=== PATIENT | female | born 1995 | race Two or more races ===

== ENCOUNTER 2024-12-24 12:02 | Outpatient (RCR) | payer MEDICAID, SELFPAY ==
--- NOTE | 2024-11-12 12:04 | XR_ITS ---
Examination: Biophysical profile, ultrasound Date and time of exam: November 12, 2024 1201 hours INDICATIONS: Diagnosis cholestasis of Technique: Multiple transabdominal sonographic images of the pelvis abdomen obtained. Attention is directed to the breathing movement, gross body movement, amniotic fluid volume and tone. Findings: Amniotic fluid index 15.7 cm Total biophysical profile is 8 of 8. breathing movement is 2. Gross body movement is 2. tone is 2. Qualitative amniotic fluid volume is 2 Impression: Biophysical profile is 8 of 8.
[2024-11-12 13:18] VITALS: BP 133/75; PULSE 86; RESP 16
--- NOTE | 2024-11-15 11:57 | XR_ITS ---
Examination: Biophysical profile, ultrasound Date and time of exam: November 15, 2024 1236 hours INDICATIONS: Diagnosis cholestasis of Technique: Multiple transabdominal sonographic images of the pelvis abdomen obtained. Attention is directed to the breathing movement, gross body movement, amniotic fluid volume and tone. Findings: Amniotic fluid index 11.2 cc Total biophysical profile is 8 of 8. breathing movement is 2. Gross body movement is 2. tone is 2. Qualitative amniotic fluid volume is 2 Impression: Biophysical profile is 8 of 8.
[2024-11-15 13:26] VITALS: BP 115/62; PULSE 88; RESP 16
--- NOTE | 2024-11-19 12:05 | XR_ITS ---
Examination: Biophysical profile, ultrasound Date and time of exam: November 19, 2024 1216 hours INDICATIONS: Diagnosis cholestasis of , diagnosis pelvic pain 2 days Technique: Multiple transabdominal sonographic images of the pelvis abdomen obtained. Attention is directed to the breathing movement, gross body movement, amniotic fluid volume and tone. Findings: Amniotic fluid index 11.1 cm Total biophysical profile is 8 of 8. breathing movement is 2. Gross body movement is 2. tone is 2. Qualitative amniotic fluid volume is 2 Impression: Biophysical profile is 8 of 8.
[2024-11-19 13:52] VITALS: BP 116/73; PULSE 88; RESP 16; TEMP 36.8
--- NOTE | 2024-11-22 12:08 | XR_ITS ---
Examination: Biophysical profile, ultrasound Date and time of exam: November 22, 2024 1227 hours INDICATIONS: Diagnosis cholestasis of , diagnosis multiple miscarriages, diagnosis pelvic pain 4 days, diagnosis high risk Technique: Multiple transabdominal sonographic images of the pelvis abdomen obtained. Attention is directed to the breathing movement, gross body movement, amniotic fluid volume and tone. Findings: Amniotic fluid index 14.6 cm Total biophysical profile is 8 of 8. breathing movement is 2. Gross body movement is 2. tone is 2. Qualitative amniotic fluid volume is 2 Impression: Biophysical profile is 8 of 8.
[2024-11-22 13:54] VITALS: BP 111/69; PULSE 88; RESP 18; TEMP 36.9
--- NOTE | 2024-11-26 12:13 | XR_ITS ---
Examination: Biophysical profile, ultrasound Date and time of exam: November 26, 2024 1224 hours INDICATIONS: Diagnosis cholestasis of , diagnosis pelvic pain 8 days Technique: Multiple transabdominal sonographic images of the pelvis abdomen obtained. Attention is directed to the breathing movement, gross body movement, amniotic fluid volume and tone. Findings: Amniotic fluid index 13.1 cm Total biophysical profile is 8 of 8. breathing movement is 2. Gross body movement is 2. tone is 2. Qualitative amniotic fluid volume is 2 Impression: Biophysical profile is 8 of 8.
[2024-11-26 14:24] VITALS: BP 125/71; PULSE 90; RESP 18
--- NOTE | 2024-11-29 12:02 | XR_ITS ---
Examination: Biophysical profile, ultrasound Date and time of exam: November 29, 2024 1211 hours INDICATIONS: Diagnosis cholestasis of Technique: Multiple transabdominal sonographic images of the pelvis abdomen obtained. Attention is directed to the breathing movement, gross body movement, amniotic fluid volume and tone. Findings: Amniotic fluid index 19.3 cm Total biophysical profile is 8 of 8. breathing movement is 2. Gross body movement is 2. tone is 2. Qualitative amniotic fluid volume is 2 Impression: Biophysical profile is 8 of 8.
[2024-11-29 13:00] VITALS: BP 119/59; PULSE 89; RESP 18
--- NOTE | 2024-12-03 12:17 | XR_ITS ---
Examination: Biophysical profile, ultrasound Date and time of exam: December 03, 2024 1220 hours INDICATIONS: Diagnosis cholestasis of , diagnosis pelvic pain one week Technique: Multiple transabdominal sonographic images of the pelvis abdomen obtained. Attention is directed to the breathing movement, gross body movement, amniotic fluid volume and tone. Findings: Amniotic fluid index 17.3 cm Total biophysical profile is 8 of 8. breathing movement is 2. Gross body movement is 2. tone is 2. Qualitative amniotic fluid volume is 2 Impression: Biophysical profile is 8 of 8.
[2024-12-03 13:27] VITALS: BP 124/64; PULSE 88; RESP 18; TEMP 36.9
--- NOTE | 2024-12-06 12:02 | XR_ITS ---
Examination: Biophysical profile, ultrasound Date and time of exam: December 06, 2024 1248 hours INDICATIONS: Diagnosis cholestasis of Technique: Multiple transabdominal sonographic images of the pelvis abdomen obtained. Attention is directed to the breathing movement, gross body movement, amniotic fluid volume and tone. Findings: Amniotic fluid index 9.5 cm Total biophysical profile is 8 of 8. breathing movement is 2. Gross body movement is 2. tone is 2. Qualitative amniotic fluid volume is 2 Impression: Biophysical profile is 8 of 8.
[2024-12-06 14:53] VITALS: BP 110/64; PULSE 85; RESP 18; TEMP 37.1
--- NOTE | 2024-12-13 11:59 | XR_ITS ---
Examination: Biophysical profile, ultrasound Date and time of exam: December 13, 2024 1204 hours INDICATIONS: Diagnosis multiple miscarriages, diagnosis cholestasis of Technique: Multiple transabdominal sonographic images of the pelvis abdomen obtained. Attention is directed to the breathing movement, gross body movement, amniotic fluid volume and tone. Findings: Amniotic fluid index 11.6 cm Total biophysical profile is 8 of 8. breathing movement is 2. Gross body movement is 2. tone is 2. Qualitative amniotic fluid volume is 2 Impression: Biophysical profile is 8 of 8.
[2024-12-13 12:37] VITALS: BP 113/67; PULSE 96; RESP 16; TEMP 36.5
--- NOTE | 2024-12-17 12:08 | XR_ITS ---
Examination: Biophysical profile, ultrasound Date and time of exam: December 17, 2024 1212 hrs. Indications: Diagnosis cholestasis of , diagnosis high risk , history multiple miscarriages, pelvic pain 10 days Technique: Multiple transabdominal sonographic images of the pelvis abdomen obtained. Attention is directed to the breathing movement, gross body movement, amniotic fluid volume and tone. Findings: Amniotic fluid index 9.5 cm Total biophysical profile is 8 of 8. breathing movement is 2. Gross body movement is 2. tone is 2. Qualitative amniotic fluid volume is 2 Impression: Biophysical profile is 8 of 8.
[2024-12-17 12:33] VITALS: BP 117/72; PULSE 96; RESP 18; TEMP 36.6
--- NOTE | 2024-12-20 07:20 | XR_ITS ---
Examination: Complete OB ultrasound greater than 14 weeks Date and time of exam: December 20, 2024 1244 hrs. Indications: Labor induction scheduled next week, diagnosis cholestasis of , diagnosis high risk , history multiple miscarriages, history pelvic pain 10 days Findings: Viable intrauterine single fetus with single amniotic sac presentation cephalic Cardiac motion 141 BPM Placenta posterior grade 3 Umbilical cord insertion 3 vessel seen Amniotic fluid index 11.9 cm spine maternal left Cervix 3.2 cm Ovaries obscured by bowel gas. Composite estimated gestational age based on BPD, head circumference, abdominal circumference, femur length is 37 weeks 1 day Estimated weight 3054 g. Survey of intracranial anatomy, spinal anatomy, abdominal anatomy, four-chamber heart performed with no abnormalities identified. Impression: Viable intrauterine gestation cephalic presentation Estimated gestational age 37 weeks 1 day Estimated weight 3054 g.
--- NOTE | 2024-12-20 12:25 | XR_ITS ---
Examination: Biophysical profile, ultrasound Date and time of exam: December 20, 2024 1255 hrs. Indications: Diagnosis cholestasis of , diagnosis intrauterine growth retardation Technique: Multiple transabdominal sonographic images of the pelvis abdomen obtained. Attention is directed to the breathing movement, gross body movement, amniotic fluid volume and tone. Findings: Amniotic fluid index 12.3 cm Total biophysical profile is 8 of 8. breathing movement is 2. Gross body movement is 2. tone is 2. Qualitative amniotic fluid volume is 2 Impression: Biophysical profile is 8 of 8.
[2024-12-20 13:08] VITALS: BP 109/65; PULSE 96; RESP 18; TEMP 36.9
--- NOTE | 2024-12-24 12:19 | XR_ITS ---
Examination: Biophysical profile, ultrasound Date and time of exam: December 24, 2024 1247 hours INDICATIONS: Diagnosis cholestasis of , diagnosis intrauterine growth retardation Technique: Multiple transabdominal sonographic images of the pelvis abdomen obtained. Attention is directed to the breathing movement, gross body movement, amniotic fluid volume and tone. Findings: Amniotic fluid index 20.8 cm Total biophysical profile is 8 of 8. breathing movement is 2. Gross body movement is 2. tone is 2. Qualitative amniotic fluid volume is 2 Impression: Biophysical profile is 8 of 8.
[2024-12-24 13:04] VITALS: BP 103/55; PULSE 97; RESP 17; TEMP 36.6
== END 2024-12-24 23:59 | disposition home or self-care (01) ==
LOC: S4S1 12:02
PROVIDERS: Referring Provider Advanced Practice Midwife; Visit Provider Advanced Practice Midwife
DX: O26.643 Intrahepatic cholestasis of pregnancy, third trimester (principal); K83.1 Obstruction of bile duct; Z3A.38 38 weeks gestation of pregnancy; O09.93 Supervision of high risk pregnancy, unspecified, third trimester
CPT/HCPCS: 59025; 76805; 76819

== ENCOUNTER 2024-12-25 10:35 | Inpatient (IN) | payer MEDICAID, SELFPAY ==
[2024-12-25] VITALS (12 sets, daily range): BP systolic 103–124; BP diastolic 55–72; PULSE 73–104; RESP 16–17; TEMP 36.8–37.1; BMI 50.6
[2024-12-25 11:24] LABS: Basophils # (Auto) 0.1 Thou/mm3 (0.0-0.2); Basophils % (Auto) 1 % (0-2.5); Eosinophils # (Auto) 0.1 Thou/mm3 (0.0-0.5); Eosinophils % (Auto) 1 % (0-10); Hematocrit 36.1 % (36.0-46.0); Immature Granulocytes % (Auto) 0 % (0-0); Immature Granulocytes Auto 0.03 Thou/mm3 (0.00-0.00); Lymphocytes # (Auto) 1.7 Thou/mm3 (1.0-4.8); Lymphocytes % (Auto) 19 % (10-50); Mean Corpuscular HGB Conc 33.2 g/dl (31.0-37.0); Mean Corpuscular Hemoglobin 26.7 pg (25.0-35.0); Mean Corpuscular Volume 80 fL (80-100); Monocytes # (Auto) 0.4 Thou/mm3 (0.0-0.8); Monocytes % (Auto) 4 % (0-12); Neutrophils # (Auto) 6.9 Thou/mm3 (1.8-7.7); Neutrophils % (Auto) 75 % (37-80); Nucleated Red Blood Cell % 0 /100 WBC (0); Platelet Count 295 Thou/mm3 (140-440); RDW Standard Deviation 40.8 fL (36.4-46.3); Red Blood Count 4.49 Miln/mm3 (4.00-5.20); White Blood Count 9.2 Thou/mm3 (3.6-11.0)
--- NOTE | 2024-12-25 11:44 | XR_ITS ---
Examination: Complete OB ultrasound greater than 14 weeks Date and time of exam: December 26, 1999 2512 noon INDICATIONS: Labor induction today, diagnosis cholestasis of , diagnosis intrauterine growth retardation Findings: Viable intrauterine single fetus with single amniotic sac presentation cephalic Cardiac motion 141 BPM Placenta fundal grade 3 Umbilical cord insertion seen Amniotic fluid index 13.5 cm Cervix 3.0 cm Ovaries obscured by bowel gas. Composite estimated gestational age based on BPD, head circumference, abdominal circumference, femur length is 38 weeks 1 day Estimated weight 3527 g. Survey of intracranial anatomy, spinal anatomy, abdominal anatomy, four-chamber heart performed with no abnormalities identified. Impression: Viable intrauterine gestation cephalic presentation.
[2024-12-25 12:12] LABS: Syphilis Nonreactive (Nonreactive)
[2024-12-25 12:22] LABS: Amphetamine/Metham Scrn,Ur OB Negative (Negative); Benzoylecgonine Screen, Ur OB Negative (Negative); Opiate Screen,Urine OB Negative (Negative); THC Screen,Urine OB Negative (Negative)
[2024-12-25] MEDS: DINOPROSTONE 10 MG VAG.SUPP VAGINAL (13:20)
--- NOTE | 2024-12-25 15:07 | PD.LDHP ---
Documentation for date of: 12/25/24 OB Labor/Induct. HPI History of Present Illness Chief complaint: induction : 4 Para: 0 Term pregnancies: 0 pregnancies: 0 Living children: 0 History of Abortions: Spontaneous and Elective: 3 History of Vaginal deliveries: 0 History of sections: No History of : No Date of last menstrual period: 03/27/24 SON: 01/01/25 Gestational Age (weeks): 39 Gestational Age (days): 1 Gestational age based on last menstrual period: 39 Indication for induction: other (gestational diabetes, good control) History of present illness: 29 yo for induction of labor. lmp 03/27/24. EDC 01/01/25. IUP 39w1. schedule for induction due to GDM, diet only, with good control. morbid obesity. patient has been followed at [facility]. first visit was at 7 week. patient has had several ultrasound, first sono was at 5 week. [facility] sono all showed good growth and good dates. NIPT,AFP and carrier screens normal. patient is A negative, ABS-, Rhogam given at 28 week. rubella immune, HBSAG-, HIV-, hep C-, GC/CT-, RPR:NR, GBS-, A1c: 5.7, 1 hr gtt elevated and 3 hr gtt elevated, compliant with gdm diet and weekly NST/BPP, denies concurrent PMH, no social habit and no surgery History of Present Dating criteria: LMP confirmed by 1st trimester US Adequate Care: Yes Ultrasounds: normal 1st trimester US and normal mid trimester US Obstetrical complications: gestational diabetes Medical complications: none Labs Labs: Negative: Hepatitis B, HIV, Chlamydia, Gonorrhea and Group Beta Strep Review of Systems Review of Systems Systems Reviewed: All systems reviewed, normal except as documented Past Medical History Surgical History SURGICAL: Positive Section Meds Home Medications and Allergies Home Medications ?Medication ?Instructions ?Recorded ?Confirmed ?Type aspirin 81 mg chewable tablet 12/17/24 History Allergies Allergy/AdvReac Type Severity Reaction Status Date / Time No Known Allergies Allergy Verified 12/26/24 08:22 OB Exam Physical Exam Vital signs: Temp Pulse Resp BP 98.3 F 83 17 110/63 12/25/24 11:11 12/25/24 15:05 12/25/24 11:11 12/25/24 15:05 Narrative: normal heart rate, lungs clear, gravid abdomen, gynecoid pelvis. efw 3500, vertex on sono, heart rate, category 1. occ uc noted. sve: 80/2/-2. vertex Detailed Labor and Delivery Exam Dilation (cm): 2 Effacement (%): 80 Cervix position: posterior station: -3 Consistency: medium Presentation: Vertex Cervical ripeness score: 3 Membranes: intact monitor accelerations: 15x15 monitor decelerations: None residential variability: Moderate (11-25) Contraction frequency (min): occ Tachysystole: No Contraction intensity: Mild OB Results Labs 12/25/24 11:10 Labs: Short CBC 12/25/24 Range/Units 11:10 WBC 9.2 (3.6-11.0) Thou/mm3 Hgb 12.0 (12.0-16.0) g/dL Hct 36.1 (36.0-46.0) % Plt Count 295 (140-440) Thou/mm3 OB Assessment & Plan Assessment and Plan (1) Normal labor and delivery: Status: Acute Additional Plan Induction method: per misoprostol protocol Plan: induction, anticipate NVD and consult MD wilks
[2024-12-25] MEDS: MISOPROSTOL 50 mCg TABLET PO (20:01)
[2024-12-26] VITALS (99 sets, daily range): BP systolic 90–161; BP diastolic 53–84; PULSE 59–109; RESP 17–18; TEMP 36.6–36.8; O2SAT 88–100
[2024-12-26] MEDS: fentaNYL CIT INJ 50 mCg/ML AMP 2ML 100 MCG IV (00:07)
[2024-12-26] MEDS: MISOPROSTOL 50 mCg TABLET PO (00:07)
[2024-12-26] MEDS: MINERAL OIL 30 ML UDC TOP (06:52)
[2024-12-26] MEDS: MISOPROSTOL 200 mCg TABLET 800 MCG PR (06:53)
[2024-12-26] MEDS: OXYTOCIN INJ 10 UNIT/ML VIAL IM (06:53)
[2024-12-26] MEDS: BENZO/LANO/ALOE (Dermoplast) 60 GM CAN 1 SPRAY TOP (06:53)
[2024-12-26] MEDS: OXYTOCIN in NS 20 units 20 UNIT/1,000 ML BAG 125 UNIT IV (06:54)
[2024-12-26] MEDS: IBUPROFEN TAB 400 MG TABLET 800 MG PO ×2 (07:01→16:40)
--- NOTE | 2024-12-26 07:16 | PD.LDDELS ---
Data (Mi) Data Hx Section: No : 4 Para: 0 Term: 0 : 0 : 0 Delivery Data (Mi) Labor Data Stimulated/Augmented: No Induction: Yes Method: Cervidil (followed by cytotec) ROM Date: 12/26/24 ROM Time: 00:40 Rupture Type: SROM Amniotic Fluid: Clear Delivery Data EDC: 01/01/25 EDC calculated by:: LMP/early US confirmation Labor Onset Stage 1 Date: 12/26/24 Labor Onset Stage 1 Time: 03:47 Labor Onset Stage 2 Date: 12/26/24 Labor Onset Stage 2 Time: 05:14 Delivery Date: 12/26/24 Delivery Time: 06:47 Gestational age (weeks): 39 Gestational age (days): 1 Placenta Delivery Date: 12/26/24 Placenta Delivery Time: 06:51 Delivered by: Valerie Jauregui Delivery nurse: Jenise Anne Other staff at delivery: Nursery Nurse Other staff at delivery: 2nd Nurse Other staff at delivery: Other staff at delivery: Irina Lo Other staff at delivery: Stephanie Real Other staff at delivery: Nancy Novoa Delivery Method Delivery: Vaginal Delivery Type: Spontaneous Presentation: Vertex Position: OA Anesthesia Type Primary Anesthesia: Epidural Delivery Room Medications Intrapartum Medications: Tocolytics Other Intrapartum Medications: No Post Delivery Medications: Tocolytics and Cytotec Placenta Placenta Delivery: Spontaneous (placenta inspected, complete) Placenta Cultures Obtained: No Placenta Sent for Examination: No Cord Sample: Cord Blood Obtained Episiotomy Episiotomy: None Lacerations #1: Vaginal: 1st degree (and left labial) Perineal repair Sutures used for repair: 3.0 Vicryl EBL Estimated blood loss (ml): 400 Umbilical Cord Umbilical Vessels: 3 Nuchal Cord: None Body Cord: None Data (Mi) Data Infant Gender: Female Weight Grams: 3225 1 Minute Total: 9 5 Minute Total: 9
[2024-12-26] MEDS: TRANEXAMIC ACID 1,000 MG IVPB 1,000 MG/100 ML BAG 200 MG IV (07:22)
--- NOTE | 2024-12-26 07:53 | PC.NURSE ---
12/26/24 0751: Notified MD Bustos of pts. fundal assessment done at 0740. Pt. passed blood clot measured at 158g.
--- NOTE | 2024-12-26 09:30 | CHAP ---
Gave new mother and father encouragement and gave a blessing on infant and family.
[2024-12-26 16:01] LABS: Basophils # (Auto) 0.1 Thou/mm3 (0.0-0.2); Basophils % (Auto) 0 % (0-2.5); Eosinophils # (Auto) 0.1 Thou/mm3 (0.0-0.5); Eosinophils % (Auto) 1 % (0-10); Hematocrit 30.3 % (36.0-46.0); Hemoglobin 10.1 g/dL (12.0-16.0); Immature Granulocytes % (Auto) 1 % (0-0); Immature Granulocytes Auto 0.08 Thou/mm3 (0.00-0.00); Lymphocytes # (Auto) 1.6 Thou/mm3 (1.0-4.8); Lymphocytes % (Auto) 12 % (10-50); Mean Corpuscular HGB Conc 33.3 g/dl (31.0-37.0); Mean Corpuscular Hemoglobin 27.1 pg (25.0-35.0); Mean Corpuscular Volume 81 fL (80-100); Monocytes # (Auto) 0.8 Thou/mm3 (0.0-0.8); Monocytes % (Auto) 6 % (0-12); Neutrophils # (Auto) 10.7 Thou/mm3 (1.8-7.7); Neutrophils % (Auto) 80 % (37-80); Nucleated Red Blood Cell % 0 /100 WBC (0); Platelet Count 255 Thou/mm3 (140-440); RDW Standard Deviation 41.7 fL (36.4-46.3); Red Blood Count 3.73 Miln/mm3 (4.00-5.20); White Blood Count 13.4 Thou/mm3 (3.6-11.0)
[2024-12-26] MEDS: DOCUSATE SOD 100 MG CAPSULE PO (20:47)
[2024-12-27] MEDS: IBUPROFEN TAB 400 MG TABLET 800 MG PO ×2 (02:04→11:24)
[2024-12-27] MEDS: ACETAMINOPHEN 325 MG TABLET 650 MG PO (04:09)
[2024-12-27 04:14] VITALS: BP 92/61; PULSE 84; RESP 18; TEMP 36.5; O2SAT 99
[2024-12-27 07:26] VITALS: BP 98/65; PULSE 80; RESP 17; TEMP 36.6; O2SAT 98
--- NOTE | 2024-12-27 07:30 | PD.LDPPPRG ---
Subjective Subjective Interval history: No complaints of pain. No dizziness. Bonding and breast-feeding. No complaints of pain. No dizziness. Exam Vital Signs Temp Pulse Resp BP Pulse Ox O2 Del Method 97.7 F 84 18 92/61 99 Room Air 12/27/24 04:14 12/27/24 04:14 12/27/24 04:14 12/27/24 04:14 12/27/24 04:14 12/27/24 04:14 Narrative Exam Vital signs are stable afebrile. Breasts are soft. Fundus firm below the umbilicus. Negative Homans' sign. 2+ DTRs. No swelling. Perineum intact minimal swelling. Small lochia Objective Labs 12/26/24 15:39 Labs: Laboratory Results - last 24 hr 12/25/24 12/25/24 12/26/24 11:10 11:10 14:18 WBC RBC Hgb Hct MCV MCH MCHC RDW Std Deviation Plt Count Neut % (Auto) Lymph % (Auto) [place] % (Auto) Eos % (Auto) Baso % (Auto) Neut # (Auto) Lymph # (Auto) [place] # (Auto) Eos # (Auto) Baso # (Auto) Immature Gran # (Auto) Absolute Nucleated RBC Immature Gran % Nucleated RBC % Blood Type A Negative Rho(D) IG Studies Ready Antibody Screen NEGATIVE Antibody Identification Cancelled Cancelled Maternal Bleed Negative Blood Bank Wristband ID Yes 12/26/24 15:39 WBC 13.4 H D RBC 3.73 L Hgb 10.1 L Hct 30.3 L MCV 81 MCH 27.1 MCHC 33.3 RDW Std Deviation 41.7 Plt Count 255 D Neut % (Auto) 80 Lymph % (Auto) 12 [place] % (Auto) 6 Eos % (Auto) 1 Baso % (Auto) 0 Neut # (Auto) 10.7 H Lymph # (Auto) 1.6 [place] # (Auto) 0.8 Eos # (Auto) 0.1 Baso # (Auto) 0.1 Immature Gran # (Auto) 0.08 H Absolute Nucleated RBC 0.00 Immature Gran % 1 H Nucleated RBC % 0 Blood Type Rho(D) IG Studies Antibody Screen Antibody Identification Maternal Bleed Blood Bank Wristband ID Assessment & Plan Problem List (1) Normal labor and delivery: Status: Acute Assessment Comment Assessment comment: 24-hour Plan Comment Plan Comment: Discharge home with baby. Continue vitamins and iron. Tylenol ibuprofen for pain. Danger signs. Return in 3 weeks visit. Discussed signs symptoms of infection and ER precautions. Time Spent With Patient Time: Total time spent is greater than 50% in coordination of care (as documented) at patient's floor/unit and/or counseling patient:
--- NOTE | 2024-12-27 07:35 | ESDS_ITS ---
DS: Providers Provider Date of admission: 12/25/24 10:35 Primary care physician: Physician No Primary/Family Admitting Provider: Rain Mann MD Attending Provider on Admission: Valerie Jauregui CNM Consults: 12/26/24 08:05 Referral Routine Comment: Attending Provider on DC: Valerie Jauregui CNM Discharging Provider: Valerie Jauregui CNM DS: Diagnosis Problem List Completed Was Problem List Reviewed/Reconciled?: Yes Summary/Hosp Course Brief History: 29 yo for induction of labor. lmp 03/27/24. EDC 01/01/25. IUP 39w1. schedule for induction due to GDM, diet only, with good control. morbid obesity. patient has been followed at [facility]. first visit was at 7 week. patient has had several ultrasound, first sono was at 5 week. [facility] sono all showed good growth and good dates. NIPT,AFP and carrier screens normal. patient is A negative, ABS-, Rhogam given at 28 week. rubella immune, HBSAG-, HIV-, hep C-, GC/CT-, RPR:NR, GBS-, A1c: 5.7, 1 hr gtt elevated and 3 hr gtt elevated, compliant with gdm diet and weekly NST/BPP, denies concurrent PMH, no social habit and no surgery Peripartum Data Delivery Method: Normal Vaginal Delivery Episiotomy Description: None Laceration Description: yes (vagial and labial) Time Spent with Patient Time attestation: Total time spent providing and/or coordinating discharge services: Exam Vital Signs Temp Pulse Resp BP Pulse Ox O2 Del Method 97.7 F 84 18 92/61 99 Room Air 12/27/24 04:14 12/27/24 04:14 12/27/24 04:14 12/27/24 04:14 12/27/24 04:14 12/27/24 04:14 Discharge Plan Plan Patient Disposition: HOME (Self Care) Patient condition on transfer: Stable Prescriptions/Referrals Prescriptions/Med Rec: New ferrous sulfate 325 mg (65 mg iron) tablet,delayed release (DR/EC) 325 mg PO BID Qty: 30 0RF ibuprofen 800 mg tablet 800 mg PO Q8H PRN (Reason: pain) Qty: 30 0RF No Action aspirin 81 mg tablet,chewable Patient Comments: chew and swallow 1 tablet by mouth once daily Referrals: No Primary/Family,Physician [Primary Care Provider] - Patient/Caregiver Discharge Instructions Meds to Beds: No Discharge Activity: resume usual activities Print Language: Yakut Activity Restrictions/Additional Instructions: Discharge home with baby. Continue vitamins and iron. Tylenol or ibuprofen for pain. Danger signs. Return in 3 weeks visit. Discussed ER precautions and parameters. Discussed signs symptoms of infection and danger signs. Stand Alone Forms: [employer] Award Info., Patient Portal Info Letter Discharge Order Discharge Orders: Discharge (Routine); Ordered 12/27/24 Ordered By: Valerie Jauregui Planned Discharge Date 12/27/24
[2024-12-27] MEDS: DOCUSATE SOD 100 MG CAPSULE PO (08:29)
--- NOTE | 2024-12-27 08:30 | PC.NURSE ---
Cleared by [facility] in criminal justice social worker
--- NOTE | 2024-12-27 09:29 | PC.SS ---
[employer] conducted bedside contact with the patient to address nursing referral indicating patient was positive for THC during .? Toxicology screening at admission negative.? [employer] introduced self and role.? Present with patient was Eduardo MIRZA.? Patient gave consent for FOB to be present during discussion.? [employer] discussed basis of referral.? Patient confirmed recreational use of THC.? Patient stated that during time of use, unaware of .? Upon confirmation of , patient ceased use.? Patient states not planning to continue recreational use of THC.? , Amparo; is the patient?s first child.? was delivered naturally, full term.? Patient plans of .? OB services provided by Valerie Jauregui.? Patient confirms consistency with OB appointments.? Patient is aligned with SNAP and WIC.? Patient is not receiving TANF.? Patient denies history of alcohol/drug abuse.? Patient denies CWS intervention.? Patient denies episodes of domestic violence.? Patient denies possessing a history of mental health, reports no current possession of depression or anxiety.? Patient has access to appropriate supplies and equipment; to include a car seat.? FOB will provide transportation upon discharge.? Patient describes possessing support system consisting of FOB and extended family.? [employer] provided the patient with information to include [employer], Warm Line and community resource numbers.? No further intervention required at this time, social human services assistants will be available to address any further concerns.? [employer] updated bedside nurse.?
== END 2024-12-27 13:35 | disposition home or self-care (01) | DRG 560 ==
LOC: S4SX 12-26 08:18 → S4NX 12-26 11:25
PROVIDERS: Admitting Provider Student in an Organized Health Care Education/Training Program; Visit Provider Advanced Practice Midwife
DX: O24.420 Gestational diabetes mellitus in childbirth, diet controlled (principal); Z37.0 Single live birth; Z3A.39 39 weeks gestation of pregnancy; O70.0 First degree perineal laceration during delivery; O99.214 Obesity complicating childbirth; E66.01 Morbid (severe) obesity due to excess calories; O26.643 Intrahepatic cholestasis of pregnancy, third trimester; K83.1 Obstruction of bile duct; O36.5930 Maternal care for other known or suspected poor fetal growth, third trimester, not applicable or unspecified
CPT/HCPCS: 36415; 76805; 80307; 85025; 85461; 86780; 86850; 86870; 86900; 86901; J2590; J2790; J2795; J3010; J3490; S0191; A9270

== ENCOUNTER 2025-01-01 20:29 | Emergency (ER) | payer MEDICAID, SELFPAY ==
[2025-01-01 20:29] VITALS: BMI 47.5
[2025-01-01 21:04] VITALS: BP 118/81; PULSE 81; RESP 18; TEMP 36.6; O2SAT 98
--- NOTE | 2025-01-01 21:33 | XR_ITS ---
Examination: Abdomen sonogram, Limited Date and time of exam: January 01, 2025 10:00 PM Indications: Right upper abdominal pain 6 days Technique: Real-time su scale transabdominal sonographic images of the upper abdomen obtained. Findings: Gallbladder sludge No gallstones Gallbladder wall 0.3 cm Common bile duct 3.3 cm Pancreatic head 2.7 cm Liver 16.8 no focal liver lesions Normal hepatopedal portal venous flow Patent IVC Impression: Negative for cholelithiasis, negative for cholecystitis Fatty liver
--- NOTE | 2025-01-01 21:34 | EDRME_ITS ---
Rapid Medical Screening Exam [facility] Arrival date/time: 01/01/25 20:29 29F with no significant PMH presents to ED with several days of RUQ pain and N/V. Patient had a vaginal delivery last week. Vaginal bleeding has improved. Chief Complaint: Abdominal Pain Vital signs: Vital Signs Temperature 98 F 01/01/25 21:04 Pulse Rate 81 01/01/25 21:04 Respiratory Rate 18 01/01/25 21:04 Blood Pressure 118/81 01/01/25 21:04 Pulse Oximetry (%) 98 01/01/25 21:04 Oxygen Delivery Method Room Air 01/01/25 21:04
[2025-01-01 22:03] LABS: Basophils # (Auto) 0.1 Thou/mm3 (0.0-0.2); Basophils % (Auto) 1 % (0-2.5); Eosinophils # (Auto) 0.4 Thou/mm3 (0.0-0.5); Eosinophils % (Auto) 5 % (0-10); Hematocrit 33.7 % (36.0-46.0); Immature Granulocytes % (Auto) 1 % (0-0); Immature Granulocytes Auto 0.09 Thou/mm3 (0.00-0.00); Lymphocytes # (Auto) 2.4 Thou/mm3 (1.0-4.8); Lymphocytes % (Auto) 24 % (10-50); Mean Corpuscular HGB Conc 32.6 g/dl (31.0-37.0); Mean Corpuscular Hemoglobin 27.3 pg (25.0-35.0); Mean Corpuscular Volume 84 fL (80-100); Monocytes # (Auto) 0.6 Thou/mm3 (0.0-0.8); Monocytes % (Auto) 6 % (0-12); Neutrophils # (Auto) 6.2 Thou/mm3 (1.8-7.7); Neutrophils % (Auto) 63 % (37-80); Nucleated Red Blood Cell % 0 /100 WBC (0); Platelet Count 386 Thou/mm3 (140-440); Red Blood Count 4.03 Miln/mm3 (4.00-5.20); White Blood Count 9.7 Thou/mm3 (3.6-11.0)
[2025-01-01 22:23] LABS: Alanine Aminotransferase 51 U/L (10-49); Albumin/Globulin Ratio 1.4 (1.2-2.2); Alkaline Phosphatase 103 U/L (46-116); Anion Gap 9 (7-16); Aspartate Amino Transferase 22 U/L (0-34); BUN/Creatinine Ratio 18 Ratio (12-20); Bilirubin,Total 0.2 mg/dL (0.3-1.2); Blood Urea Nitrogen 14 mg/dL (9-23); Calcium 9.4 mg/dL (8.3-10.6); Calcium (Corrected) 9.4 mg/dL (8.5-10.1); Carbon Dioxide 26.3 mMol/L (20.0-31.0); Chloride 107 mMol/L (98-107); Creatinine (Component) 0.8 mg/dL (0.6-1.3); Estimated Creatinine Clearance 127.6 mL/min (>60); Globulin 2.8 gm/dL (2.3-3.5); Glucose 90 mg/dL (74-106); Lipase 54 U/L (12-53); Osmolality,Calculated 283 (275-295); Potassium 4.1 mMol/L (3.4-5.1); Sodium 142 mMol/L (136-145); Total Protein 6.8 gm/dL (5.7-8.2); eGFR > 60 See Note
[2025-01-01 23:10] LABS: Collection Type, Urine Clean Catch
[2025-01-01 23:18] LABS: Bilirubin,Urine Negative (Negative); Blood,Urine 3+ (Negative); Clarity,Urine Turbid (Clear/Hazy); Color,Urine Colorless (Lt Yel-Yel); Glucose, Urine Negative (Negative); Ketones,Urine Negative (Negative); Leukocyte Esterase,Urine Positive (Negative); Nitrite,Urine Negative (Negative); PH,Urine 6.5 (5.0-7.0); Protein,Urine Trace (Neg - Trace); RBC,Urine 107 /hpf (0-3); Specific Gravity,Urine 1.015 (1.001-1.035); Squamous Epithelial Cell,Urine 1 /hpf (0-5); Urobilinogen,Urine Negative mg/dL (0.0-1.0); WBC,Urine 192 /hpf (0-5)
--- NOTE | 2025-01-02 01:04 | EDNOTE_ITS ---
ED Abdominal Pain RME/HPI General Chief Complaint: Abdominal Pain Stated complaint: RIGHT UPPER ABD PAIN Arrival date/time: 01/01/25 20:29 Limitations: no limitations RME / HPI RME / HPI narrative: 01/01/25 20:29 29F with no significant PMH presents to ED with several days of RUQ pain and N/V. Patient had a vaginal delivery last week. Vaginal bleeding has improved. Dr. 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 Patient states she started having sudden, sharp RUQ pain tonight. No radiation or migration. Her pain does not worsen after eating. Patient reports associated dysuria. She denies any N/V, fever, chills, vaginal discharge or any other associated symptoms. Patient is bottle and breast-feeding. Related Data Home Medications ?Medication ?Instructions ?Recorded ?Confirmed aspirin 81 mg chewable tablet 12/17/24 Previous Rx's ?Medication ?Instructions ?Recorded ferrous sulfate 325 mg (65 mg 325 mg PO BID #30 tabs 0 12/27/24 iron) tablet,delayed release ibuprofen 800 mg tablet 800 mg PO Q8H PRN pain #30 t abs 12/27/24 cephalexin 500 mg capsule 500 mg PO TID #21 caps 01/02 Allergies Allergy/AdvReac Type Severity Reaction Status Date / Time No Known Allergies Allergy Verified 01/01/25 20:29 Review of Systems Review of Systems Systems Reviewed: All systems reviewed, normal except as documented ED Exam General Limitations: Present no limitations General appearance: Present alert and in no apparent distress Head Head exam: Present atraumatic Eye Eye exam: Present normal appearance, PERRL and EOMI ENT ENT exam: Present normal exam, normal oropharynx and mucous membranes moist Neck Neck exam: Present normal inspection, full ROM and trachea midline Chest Chest inspection: Present normal inspection and symmetric chest wall rise Respiratory Respiratory exam: Present normal lung sounds bilaterally Cardiovascular Cardiovascular exam: Present regular rate, normal rhythm and normal heart sounds Abdominal Exam Abdominal exam: Present soft and normal bowel sounds Extremities Exam Extremities exam: Present normal inspection and full ROM Back Exam Back exam: Present normal inspection and full ROM Neurological Exam Neurological exam: Present alert, oriented X3 and CN II-XII intact Psychiatric Psychiatric exam: Present normal affect and normal mood Skin Skin exam: Present warm, dry, intact and normal color Course Quality Measures none Orders Category Date Time Status US gall bladder Stat Exams 01/01/25 21:33 Completed CBC Stat Lab 01/01/25 21:36 Completed CMP [Comprehensive Metabolic Panel] Stat Lab 01/01/25 21:36 Completed Lipase Stat Lab 01/01/25 21:36 Completed UA [Urinalysis] Stat Lab 01/01/25 23:05 Completed cephALEXin [Keflex] Med 01/02/25 01:09 Once 500 mg PO X1 ONE Vital Signs Vital signs: Vital Signs Temperature 98 F 01/01/25 21:04 Pulse Rate 81 01/01/25 21:04 Respiratory Rate 18 01/01/25 21:04 Blood Pressure 118/81 01/01/25 21:04 Pulse Oximetry (%) 98 01/01/25 21:04 Oxygen Delivery Method Room Air 01/01/25 21:04 Pulse ox is 98% on room air, which is normal according to my interpretation. Abdominal Pain MDM MDM Narrative MDM Narrative:: At this time I do not feel this patient has endometritis. Her blood pressure is stable and she does not have post eclampsia. She is complaining of dysuria and at this time I will treat her for UTI symptoms. Patient data External records reviewed:: [facility] previous records (Per chart review, patient has no previous ED visits.) Clinical information provided by:: patient Social determinants that could affect healthcare access:: none Patient has the following chronic illnesses:: none How is presenting disease/condition affected by chronic disease/condition?: no chronic disease Evaluation data The following diagnostics were reviewed and interpreted by me:: lab results and radiology exam(s) Lab and/or radiology exams considered but not ordered:: none Interpretation Summary: CBC is normal, CMP is normal, Lipase is 54, UA is positive for a UTI, according to my interpretation. ------ [facility] Report Signed Patient: JOSEP TAPIA [facility]. Record#: [id number] Birthdate: 1995 Age/Sex: 29 / F Location: [facility] Attending Dr: Ordering Physician: Diogo Milligan PA-C Date of Service: 01/01/25 Procedure(s): US gall bladder Accession Number(s): [id number] cc: Stephan Caldera MD; NO PRIMARY/FAMILY,PHYSICIAN; Diogo Milligan PA-C~ Examination: Abdomen sonogram, Limited Date and time of exam: January 01, 2025 10:00 PM Indications: Right upper abdominal pain 6 days Technique: Real-time su scale transabdominal sonographic images of the upper abdomen obtained. Findings: Gallbladder sludge No gallstones Gallbladder wall 0.3 cm Common bile duct 3.3 cm Pancreatic head 2.7 cm Liver 16.8 no focal liver lesions Normal hepatopedal portal venous flow Patent IVC Impression: Negative for cholelithiasis, negative for cholecystitis Fatty liver Dictated By: Stephan Caldera MD Signed By: <Electronically signed by Stephan Caldera MD in OV> 01/01/25 0549 Medications / Prescriptions Medications or Prescriptions considered but not ordered:: none Medication administrations:: Medication Administration History Cephalexin HCl (Cephalexin 250 Mg Capsule) 500 mg PO X1 ONE Stop: 01/02/25 01:10 see above, if any Consultations Consultation(s) initiated? (list below): No Diagnosis Differential diagnosis abdominal pain: pancreatitis and other (cholelithiasis, cholecystitis, dysuria, UTI) Most likely diagnosis given after review of the tests above:: see clinical impression below Admission Indicated Admission indicated?: not indicated Admission Request Was there a request for admission?: No Disposition Plan Disposition Plan: Discharge Discharge Attestation Discharge Attestation: The patient and all family members were given an opportunity to ask questions and understood the discharge instructions. Discharge instructions specifically effects, indications for sooner follow up or return to the emergency department, and the expected course of current diagnosis. Patient condition: Stable Discharge Plan Plan Patient Disposition: HOME (Self Care) Patient condition on transfer: Stable Prescriptions/Referrals Prescriptions/Med Rec: New cephalexin 500 mg capsule 500 mg PO TID Qty: 21 0RF No Action aspirin 81 mg tablet,chewable Patient Comments: chew and swallow 1 tablet by mouth once daily ferrous sulfate 325 mg (65 mg iron) tablet,delayed release (DR/EC) 325 mg PO BID Qty: 30 0RF ibuprofen 800 mg tablet 800 mg PO Q8H PRN (Reason: pain) Qty: 30 0RF Referrals: No Primary/Family,Physician [Primary Care Provider] - In 1 week Problem List Clinical Impression: Dysuria Patient/Caregiver Discharge Instructions Education Materials: Dysuria Additional Instructions: Please take the antibiotics as prescribed. You will need to follow-up with your primary care or your PHYSICAL SCIENCE PROFESSOR in 72 hours to get the urine culture results. Return to the emergency department before your appointment or at any time if you are feeling back pain, fever, you cannot tolerate liquids and or vomiting, or you have any vaginal pain or discharge. Print Language: Frisian Stand Alone Forms: [employer] Info., Patient Portal Info Letter
[2025-01-02] MEDS: cephALEXin 250 MG CAPSULE 500 MG PO (01:24)
[2025-01-02 01:27] VITALS: PULSE 67; RESP 19; TEMP 37.1; O2SAT 99
== END 2025-01-02 01:28 | disposition home or self-care (01) ==
PROVIDERS: Physician Assistant; Emergency Provider Emergency Medicine
DX: O90.89 Other complications of the puerperium, not elsewhere classified (principal); R30.0 Dysuria; R10.11 Right upper quadrant pain
CPT/HCPCS: 36415; 76705; 80053; 81001; 83690; 85025; 99284; A9270

== ENCOUNTER 2025-08-14 10:40 | Outpatient (AMB) | payer MEDICAID, SELFPAY ==
[2025-08-14 10:57] VITALS: BP 106/74; PULSE 87; RESP 16; TEMP 36.6; O2SAT 96; BMI 46.4
--- NOTE | 2025-08-14 10:57 | OBCLNT_ITS ---
Vital Signs 08/14/25 10:57 Height 1.57 m Height Method Stated Weight 114.532 kg Weight Measurement Method Standing Scale BMI 46.4 BP 106/74 Blood Pressure Source Automatic Cuff Blood Pressure Location Left Upper Arm Position Sitting Respiration 16 Pulse 87 Pulse Source Monitor Temp 97.8 F Temp Source Oral Pulse Oximetry (%) 96 Oxygen Delivery Method Room Air Allergies/Home Meds Allergies & Medications Allergies No Known Allergies Allergy (Verified 08/14/25 10:57) Medication Reconciliation aspirin 81 mg chewable tablet 12/17/24 [History Confirmed 08/14/25] ferrous sulfate 325 mg (65 mg iron) tablet,delayed release 325 mg PO BID #30 tabs 12/27/24 [Rx Confirmed 08/14/25] ibuprofen 800 mg tablet 800 mg PO Q8H PRN pain #30 tabs 12/27/24 [Rx Confirmed 08/14/25] cephalexin 500 mg capsule 500 mg PO TID #21 caps 01/02/25 [Rx Confirmed 08/14/25] Intake Visit Data Collection New Patient or Established: Established Patient (seen at [facility] within 3 years) Reason for Visit:: INITIAL CARE Seen by Clinical Staff ONLY (RN/MA): No Membership Solicitor Required: No Do You Feel Safe at Home: Yes Authorities Contacted: N/A PCP or OBGYN visit in last 3 months: Yes Hx Now: Yes Are you currently on any form of Control: No Last menstrual period: 06/07/25 Pain Present Currently: No Pain Scale Used: Ramirez-Valenzuela/Numerical Pain scale:: 0 Smoking Status Smoking Status: Former smoker Immunizations Flu Vaccine in the Last 12 Months: No Flu Vaccine Exclusion Criteria: No Exclusion Criteria Questionnaires Covid-19 Vaccine Questionnaire Has patient been vacinated for Covid-19 Have you been vacinated for Covid-19: Yes PHQ-9 PHQ-2 Over the last 2 weeks, how often have you been bothered by any of the following problems? 1. Little interest or pleasure in doing things: not at all 2. Feeling down, depressed, or hopeless: not at all Total score: 0 PHQ-9 3. Trouble falling or staying asleep, or sleeping too much: Not at all 4. Feeling tired or having little energy: Not at all 5. Poor appetite or overeating: Not at all 6. Feeling bad about yourself - or that you are a failure or have let yourself or your family down: Not at all 7. Trouble concentrating on things, such as reading the newspaper or watching television: Not at all 8. Moving or speaking so slowly that other people could have noticed? - Or the opposite - being so fidgety or restless that you have been moving around a lot more than usual: not at all 9. Thoughts that you would be better off or of hurting yourself in some way: Not at all Total score: 0 Source: Developed by Drs. Miguel Lazo, Ese Tate, Willie Ventura and colleagues, with an educational dinesh from [employer]. Depression screen completed yes Social History Living Situation History Lives With: Family Housing: House Tobacco History Smoking Status: Former smoker Second Hand Smoke Exposure: No Alcohol History Alcohol Intake: Former Alcohol Intake Frequency: holidays/special occasions only Domestic Abuse History Do You Feel Safe at Home: Yes History of Present Illness HPI Narrative Initial visit Patient is a 29-year-old [id number] at 9 weeks and 5 days gestation by last menstrual period of May 28, presenting for her initial visit. Her estimated due date is March 14 of next year. This is her fifth , with a history of three miscarriages and one previous normal vaginal delivery. Her most recent delivery was on December 26 of this year, indicating a short interpregnancy interval. During her previous , she experienced gestational diabetes, which cleared after delivery as confirmed by testing. The patient has been taking vitamins and folic acid supplementation. Medical History: - Gestational diabetes during previous , resolved Surgical History: - Polyp removal in [address] 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 Denies CATES, VC, and epigastric pain. - Darlin Payne is a 29-year-old femal e presenting for her initial visit. - Her last menstrual period was May 24, giving her a due date of March 14 of next year and making her 9 weeks and 5 days today. - This is her 5th with a histo ry of 3 miscarriages and one previous normal vaginal delivery. - Her most recent delivery was December 26 of this year, representing a short interpregnancy interval. - During her previous , she had gestational diabetes which cleared after delivery as confirmed by testing. - She had polyp removal performed by Dr. Mann in 2021. - She is currently taking vitamins and folic acid. - Obtain formal ultrasound in radiology department to confirm and assess viability - Order initial OB panel laboratory stud ies - Order genetics testing including gende r determination (patient is 9+ weeks gestation) - Obtain insurance authorization for ult rasound if needed - Continue current vitamins (fo lic acid) - Schedule follow-up appointment with Elodia carlos (previous provider) Menstrual History Menstrual reliability: definite Flow: normal Menstrual regularity: irregular Monthly: No Age at menarche: 13 On control pills at conception: No Associated symptoms (LMP): Reports nausea, vomiting, fatigue and breast tenderness OB History : 5 Para: 1 Hx Total # of Abortions (Spontaneous & Elective): 3 # of Living Children: 1 Delivery History 1st : Child's name: MARYAM date: 12/26/24 sex: female Gestational age at delivery (weeks): 39 Delivery type: vaginal Delivery complications: NONE History of depression before or after : No Infection History & Risk Evaluation History of STDs: none Genetic Screening & History Genetic Screening/Teratology Counseling - Includes patient, baby's father, or anyone in either family with: 1. Patient's age 35 years or older as of estimated date of delivery: No 2. Thalassemia (Bermudian, Maltese, Mediterranean, or Background); MCV less than 80: No 3. Neural Tube Defect (Meningomyelocele, Spina Bifida, or Anencephaly): No 4. Congenital Heart Defect: No 5. Down Syndrome: No 6. Jose-Sachs (Ashkenazi Restorationism, Cajun, Stateless New Zealander): No 7. Kay Disease (Ashkenazi Restorationism): No 8. Familial Dysautonomia (Ashkenazi Restorationism): No 9. Sickle Cell Disease or Trait (): No 10. Hemophilia or other blood disorders: No 11. Muscular Dystrophy: No 12. Cystic Fibrosis: No 13. Blayne's Chorea: No 14. Mental Retardation/Autism: No 15. Other inherited genetic or chromosomal disorder: No 16. Maternal Metabolic Disorder (EG,TYPE 1 Diabetes, PKU): No 17. Patient or baby's father had a child with defects not listed above: No 18. Recurrent loss or a stillbirth: No 19. Medications (including supplements, vitamins, herbs or otc drugs)/illicit/recreational drugs/alcohol since last menstrual period: No 20. Any other: No Infection History 1. Live with someone with TB or exposed to TB: No 2. Rash or viral illness since last menstrual period: No 3. Hepatitis B,C: No Other (see comments) Source: [employer] Review of Systems Constitutional Constitutional: Reports fatigue Gastrointestinal Gastrointestinal: Reports nausea and Reports vomiting Endocrine Endocrine: Reports fatigue Office Procedures [facility] LOC & Office Proc's Nursing/Assessment Patient Status: Established Patient OB Clinic Nursing Assessment: Medication Reconciliation, Update PMH in EMR and Vital Signs OB Clinic Coordination of Care: Complex Care and Chronic Disease 1-5, Consent,records obtained, informed consent, Education Simp Pt/Fam, 1 Ins Authorization, Lab and Imaging orders, Results/Orders obtained and Staff clarify orders Special Needs: Heart tones Established Patient Charge Established Patient Point Assignment: 150 Established Patient Point Charge: EP Level 4 (120-155) Assessment & Plan Diagnosis / Problem List (1) of unknown anatomic location: Status: Acute (2) Supervision of high risk , unspecified, second trimester: Status: Acute Plan Problem List - - Gestational diabetes mellitus - Recurrent loss Assessment 29-year-old female presenting for initial visit at 9 weeks 5 days gestation based on last menstrual period of June 07 with estimated due date of March 14. This is her 5th with history of 3 prior miscarriages and 1 previous normal vaginal delivery in December of this year complicated by gestational diabetes that resolved . Patient had polyp removal performed by Dr. Garcia in 2021. Current represents a short interpregnancy interval. Initial bedside ultrasound visualized sac but image quality was suboptimal requiring formal radiology ultrasound for confirma tion. Patient is currently taking vitamins and folic acid. Plan - Obtain formal ultrasound in radiology department to confirm and assess viability - Order initial OB panel laboratory studies - Order genetics testing including gender determination (patient is 9+ weeks gestation) - Obtain insurance authorization for ultrasound if needed - Continue current vitamins (folic acid) - Schedule follow-up appointment with Valerie (previous provider)
== END 2025-08-14 11:38 | disposition home or self-care (01) ==
LOC: HODSOBC 10:40
PROVIDERS: Supervising Provider Obstetrics & Gynecology; Visit Provider Obstetrics & Gynecology
DX: O09.891 Supervision of other high risk pregnancies, first trimester (principal); O09.291 Supervision of pregnancy with other poor reproductive or obstetric history, first trimester; O26.21 Pregnancy care for patient with recurrent pregnancy loss, first trimester; Z3A.09 9 weeks gestation of pregnancy; Z86.32 Personal history of gestational diabetes; Z87.891 Personal history of nicotine dependence; Z79.82 Long term (current) use of aspirin
CPT/HCPCS: 99214; G0463

== ENCOUNTER → 2025-08-22 | Outpatient (CLI) | payer MEDICAID, SELFPAY ==
--- NOTE | 2025-08-22 14:11 | XR_ITS ---
Examination: OB Transvaginal ultrasound of the pelvis, complete Technique: Transvaginal sonographic images pelvis performed using su scale imaging Exam date and time: August 22, 2025, 1449 hours INDICATIONS: No pole at doctors office today on examination FINDINGS: Uterus 9.6 cm Intrauterine gestational sac 1.8 cm corresponds to 6 weeks 5 days gestational age No pole, no cardiac activity No yolk sac Right ovary 3.1 cm arterial flow Small follicles Left ovary 2.8 cm arterial flow 18 x 20 mm follicle. IMPRESSION: Empty intrauterine gestational sac corresponding to 6 weeks 5 days gestational age Suggest continued short-term follow-up to exclude embryonic demise
--- NOTE | 2025-08-22 14:11 | XR_ITS ---
Examination: Complete OB ultrasound, less than 14 weeks, transabdominal Date and time of exam: August 22, 2025, 1440 hours INDICATIONS: Inconclusive viability, no pole seen at the doctor's office today Technique: Obstetrical ultrasound images less than 14 weeks performed via transabdominal imaging Findings: Uterus 9.6 cm intrauterine gestational sac 2.0 cm corresponds to 6-week 6-day gestational age No pole, no cardiac activity Right ovary 3.2 cm arterial flow Left ovary 4.0 cm arterial flow 19 mm cyst IMPRESSION: Empty intrauterine gestational sac corresponding to 6 weeks 6 days gestational age Consider transvaginal pelvic sonography follow-up
== END | disposition home or self-care (01) ==
LOC: CDIM 14:05
PROVIDERS: Referring Provider Obstetrics & Gynecology; Visit Provider Obstetrics & Gynecology
DX: O26.849 Uterine size-date discrepancy, unspecified trimester (principal); O36.80X0 Pregnancy with inconclusive fetal viability, not applicable or unspecified; Z3A.01 Less than 8 weeks gestation of pregnancy
CPT/HCPCS: 76801; 76817

== ENCOUNTER 2025-08-24 18:36 | Emergency (ER) | payer MEDICAID, SELFPAY ==
[2025-08-24 18:36] VITALS: BMI 45.7
[2025-08-24 18:59] VITALS: BP 114/77; PULSE 76; RESP 16; TEMP 36.8; O2SAT 100
--- NOTE | 2025-08-24 19:20 | XR_ITS ---
Examination: Complete OB ultrasound, less than 14 weeks, transabdominal Date and time of exam: August 24, 2025, 1 1932 hours INDICATIONS: Empty intrauterine gestational sac corresponding to 6-week 5-day gestational age on ultrasound August 22, 2025, pelvic pain Technique: Obstetrical ultrasound images less than 14 weeks performed via transabdominal imaging Findings: Uterus 10.4 cm, intrauterine gestational sac corresponds to 6 weeks 4 days gestational age No pole, no cardiac activity Right ovary obscured by bowel gas Left ovary 2.7 cm arterial flow IMPRESSION: Intrauterine gestational sac corresponding to 6 weeks 4 days gestational age No pole, no cardiac activity Recommend continued short-term follow-up pelvic sonography to exclude embryonic demise
[2025-08-24 19:43] LABS: Collection Type, Urine Voided
[2025-08-24 19:55] LABS: Bacteria,Urine Rare; Bilirubin,Urine Negative (Negative); Blood,Urine 3+ (Negative); Clarity,Urine Turbid (Clear/Hazy); Color,Urine Lt-Yellow (Lt Yel-Yel); Glucose, Urine Negative (Negative); Ketones,Urine Negative (Negative); Leukocyte Esterase,Urine Positive (Negative); Nitrite,Urine Negative (Negative); PH,Urine 6.0 (5.0-7.0); Protein,Urine Trace (Neg - Trace); RBC,Urine 188 /hpf (0-3); Specific Gravity,Urine 1.022 (1.001-1.035); Squamous Epithelial Cell,Urine 16 /hpf (0-5); Urobilinogen,Urine Negative mg/dL (0.0-1.0); WBC,Urine 24 /hpf (0-5)
[2025-08-24 20:10] LABS: Basophils # (Auto) 0.1 Thou/mm3 (0.0-0.2); Basophils % (Auto) 1 % (0-2.5); Eosinophils # (Auto) 0.3 Thou/mm3 (0.0-0.5); Eosinophils % (Auto) 3 % (0-10); Hematocrit 37.6 % (36.0-46.0); Hemoglobin 12.3 g/dL (12.0-16.0); Immature Granulocytes Auto 0.02 Thou/mm3 (0.00-0.00); Lymphocytes # (Auto) 2.9 Thou/mm3 (1.0-4.8); Lymphocytes % (Auto) 31 % (10-50); Mean Corpuscular HGB Conc 32.7 g/dl (31.0-37.0); Mean Corpuscular Hemoglobin 27.5 pg (25.0-35.0); Mean Corpuscular Volume 84 fL (80-100); Monocytes # (Auto) 0.5 Thou/mm3 (0.0-0.8); Monocytes % (Auto) 5 % (0-12); Neutrophils # (Auto) 5.5 Thou/mm3 (1.8-7.7); Neutrophils % (Auto) 59 % (37-80); Nucleated Red Blood Cell # 0.00 Thou/mm3 (0.00-0.00); Nucleated Red Blood Cell % 0 /100 WBC (0); Platelet Count 283 Thou/mm3 (140-440); RDW Standard Deviation 43.8 fL (36.4-46.3); Red Blood Count 4.48 Miln/mm3 (4.00-5.20); White Blood Count 9.4 Thou/mm3 (3.6-11.0)
[2025-08-24 21:13] LABS: Anion Gap 10 (7-16); Blood Urea Nitrogen 8 mg/dL (9-23); Carbon Dioxide 25.1 mMol/L (20.0-31.0); Chloride 103 mMol/L (98-107); Creatinine (Component) 0.6 mg/dL (0.6-1.3); Potassium 3.9 mMol/L (3.4-5.1); Sodium 138 mMol/L (136-145)
[2025-08-24 21:14] LABS: Alanine Aminotransferase 13 U/L (10-49); Albumin, Serum 4.6 gm/dL (3.5-5.0); Albumin/Globulin Ratio 1.7 (1.2-2.2); Alkaline Phosphatase 73 U/L (46-116); Aspartate Amino Transferase 12 U/L (0-34); BUN/Creatinine Ratio 13 Ratio (12-20); Beta HCG,Quantitative 8300 mIU/mL (<5.0); Bilirubin,Total 0.2 mg/dL (0.3-1.2); Calcium 9.5 mg/dL (8.3-10.6); Calcium (Corrected) 9.5 mg/dL (8.5-10.1); Estimated Creatinine Clearance 166.2 mL/min (>60); Globulin 2.7 gm/dL (2.3-3.5); Glucose 87 mg/dL (74-106); Osmolality,Calculated 272 (275-295); Total Protein 7.3 gm/dL (5.7-8.2); eGFR > 60 See Note
--- NOTE | 2025-08-25 01:34 | EDNOTE_ITS ---
ED OB Contraction Preg RMI/HPI General Chief complaint: Vaginal Bleeding Stated complaint: VAGINAL SPOTTING X1 HR; SCHEDULED FOR D&C Time Seen by Provider: 08/24/25 18:41 Arrival date/time: 08/24/25 18:36 This is a case of 29-year-old female who came in in the emergency room due to vaginal bleeding for 1 hour with pelvic cramping patient is 6 weeks 5 para 1 with history of 3 miscarriages patient was seen by Dr. Tanner yesterday diagnosis was missed and embryonic (blighted ovum) and was scheduled to have D and C this week due to vaginal bleeding and pelvic cramping this patient decided to sought consult here in the emergency room patient denies any heavy bleeding denies any blood clot denies any other symptom no fever no chills Limitations: no limitations Related Data Home Medications ?Medication ?Instructions ?Recorded ?Confirmed aspirin 81 mg chewable tablet 12/17/24 08/14/25 Previous Rx's ?Medication ?Instructions ?Recorded ferrous sulfate 325 mg (65 mg 325 mg PO BID #30 tabs 0 12/27/24 iron) tablet,delayed release ibuprofen 800 mg tablet 800 mg PO Q8H PRN pain #30 t abs 12/27/24 cephalexin 500 mg capsule 500 mg PO TID #21 caps 01/02 nitrofurantoin 100 mg PO BID #20 caps 08/25 monohydrate/macrocrystals 100 mg capsule (Macrobid) Allergies Allergy/AdvReac Type Severity Reaction Status Date / Time No Known Allergies Allergy Verified 08/24/25 18:39 Review of Systems Review of Systems Systems Reviewed: All systems reviewed, normal except as documented Constitutional Constitutional: Reports system reviewed and no additional complaints, except as documented and Reports as per HPI Eyes Eyes: Reports system reviewed and no additional complaints, except as documented and Reports as per HPI Cardiovascular Cardiovascular: Reports system reviewed and no additional complaints, except as documented and Reports as per HPI Respiratory Respiratory: Reports system reviewed and no additional complaints, except as documented and Reports as per HPI Gastrointestinal Gastrointestinal: Reports system reviewed and no additional complaints, except as documented, Reports as per HPI, Denies abdominal pain, Denies nausea and Denies vomiting Musculoskeletal Musculoskeletal: Reports system reviewed and no additional complaints, except as documented and Reports as per HPI Neurologic Neurologic: Reports system reviewed and no additional complaints, except as documented and Reports as per HPI Past Medical History Past Medical History NEUROLOGIC: Negative Neurological Disorders or Seizures CARDIAC: Negative Cardiac Disorders, Congestive Heart Failure, Edema, Cellulitis or Varicose Veins RESPIRATORY: Negative Chronic Obstructive Pulmonary Disease (COPD) GASTROINTESTINAL: Negative Gastrointestinal Disorders or Hepatitis GENITOURINARY: Negative Genitourinary Disorders or Renal Disease REPRODUCTIVE: Positive Previous Pregnancies (X3) MUSCULOSKELETAL: Negative Musculoskeletal Disorders ENDOCRINE: Negative Endocrine Disorders, Diabetes Mellitus Type 1 or Diabetes Mellitus Type 2 HEMATOLOGIC: Negative Blood Disorders OTHER HISTORY: Negative Hospitalization, Autoimmune Disease, Shingles, Falls, Blood Transfusions (na), Anesthesia Reactions (na), Chemotherapy, Radiation Therapy, MRSA, Chicken Pox, Measles, Mumps or Cancer Family History FAMILY HISTORY: Positive Family Respiratory Disorders (SISTER (ASTHMA)), Family Cardiac Disorders (MOTHER (HTN)) and Family Surgery (FATHER); Negative Family Psychiatric Problems, Family Gastrointestinal Problems, Family Cancer or Family Anesthesia Reaction Surgical History SURGICAL: Negative Pacemaker or Section Social History SMOKING STATUS: Never smoker SECOND HAND EXPOSURE: No ED Exam General Limitations: Present no limitations General appearance: Present alert, in no apparent distress and other (Patient is awake alert oriented not in distress nontoxic looking well-hydrated well- nourished) Head Head exam: Present atraumatic, normocephalic and normal inspection Eye Eye exam: Present normal appearance, PERRL and EOMI ENT ENT exam: Present normal exam, normal oropharynx and mucous membranes moist Neck Neck exam: Present normal inspection, full ROM and trachea midline; Absent tenderness, meningismus, lymphadenopathy or thyromegaly Chest Chest inspection: Present normal inspection and symmetric chest wall rise; Absent tenderness Respiratory Respiratory exam: Present normal lung sounds bilaterally; Absent respiratory distress, wheezes, stridor, accessory muscle use or prolonged expiratory phase Cardiovascular Cardiovascular exam: Present regular rate, normal rhythm and normal heart sounds; Absent bradycardia, tachycardia, irregular rhythm, systolic murmur or diastolic murmur Abdominal Exam Abdominal exam: Present soft, normal bowel sounds and other (Gravid uterus); Absent distention, tenderness, guarding, rebound, rigidity, diminished bowel sounds, hyperactive bowel sounds or hypoactive bowel sounds Extremities Exam Extremities exam: Present normal inspection and full ROM Back Exam Back exam: Present normal inspection and full ROM Neurological Exam Neurological exam: Present alert, oriented X3, CN II-XII intact and normal gait; Absent motor sensory deficit or reflexes normal Psychiatric Psychiatric exam: Present normal affect and normal mood Skin Skin exam: Present warm, dry, intact, normal color and other (Excellent skin turgor) Course Quality Measures none Orders Category Date Time Status US OB <= 14 weeks fetus Stat Exams 08/24/25 19:20 Completed ABO/RH Type Stat Lab 08/24/25 19:59 Completed Beta HCG,Quantitative Stat Lab 08/24/25 19:59 Completed CBC Stat Lab 08/24/25 19:59 Completed CMP [Comprehensive Metabolic Panel] Stat Lab 08/24/25 19:59 Completed Urinalysis Stat Lab 08/24/25 19:37 Completed Vital Signs Vital signs: Vital Signs Temperature 98.2 F 08/24/25 18:59 Pulse Rate 76 08/24/25 18:59 Respiratory Rate 16 08/24/25 18:59 Blood Pressure 114/77 08/24/25 18:59 Pulse Oximetry (%) 100 08/24/25 18:59 Patient is afebrile not tachycardic not tachypneic BP stable not hypoxic oxygen saturation is 100% OB/Uterine Contractions MDM Narrative MDM Narrative:: This is a case of 29-year-old female who came in in the emergency room due to vaginal bleeding for 1 hour with pelvic cramping patient is 6 weeks 5 para 1 with history of 3 miscarriages patient was seen by Dr. Tanner yesterday diagnosis was missed and embryonic (blighted ovum) and was scheduled to have D and C this week due to vaginal bleeding and pelvic cramping this patient decided to sought consult here in the emergency room patient denies any heavy bleeding denies any blood clot denies any other symptom no fever no chills patient is awake alert oriented not in distress nontoxic looking well-hydrated well-nourished excellent skin turgor abdominal exam is benign nonsurgical no guarding no rebound no rigidity gravid uterus no tenderness the rest of the physical examination and neurological exam is normal and unremarkable vital signs stable BP stable not tachycardic not tachypneic not hypoxic patient was asked regarding the progression of vaginal bleeding patient verbalized that she did not change any pads within her stay here in the hospital which is 4 hours no blood clots blood test showed no leukocytosis no anemia k idney and liver function is normal no electrolyte imbalance patient beta-hCG [id number] urinalysis showed WBC in the urine suggestive of urinary tract infection pelvic ultrasound showed intrauterine 6 weeks 4 days no pole no cardiac activity possible demise patient is O- discussed with Dr. DURAN did regarding patient condition history and physical examination with the result of blood test and ultrasound since the patient vital signs stable BP stable no progression of vaginal bleeding patient can be sent home with stable condition and will follow-up in the ER or in the clinic of Dr. Gallagher for further evaluation and treatment and possible D&C I discussed rate regarding the blood type O negative I was told that patient since she will follow-up with Dr. Gallagher I do not need to give RhoGAM at the time of exam patient will be also discharged with Macrobid for urinary tract infection I discussed with the patient and relayed the instruction of Dr. Duran she understood very well that she will return on Tuesday ER or the clinic of Dr. George for further evaluation and treatment and possible D&C she was also advised for any worsening symptoms or any in the emergency condition return return to the emergency room immediately or call 911 Patient was discharged with comfortable condition walking with stable gait. Patient verbalized no further complains explained diagnosis and answered patient question. Patient is comfortable with the proposed management plan including the need to follow up with his/her primary care physician and any specialist if applicable Discussed patient for any urgent condition or worsening sx, He/She needed to go to emergency room immediately or call 911. Patient acknowledge the responsibility to follow up as instructed and to monitor her/his symptoms. For any persistence of the symptoms for more than 3-5 days return precaution advised. Discussed the result of the test and was given printed discharge instruction Patient data External records reviewed:: [facility] previous records Clinical information provided by:: patient Social determinants that could affect healthcare access:: none Patient has the following chronic illnesses:: None How is presenting disease/condition affected by chronic disease/condition?: no chronic disease Evaluation data The following diagnostics were reviewed and interpreted by me:: lab results and radiology exam(s) Lab and/or radiology exams considered but not ordered:: Reviewed Interpretation Summary: Reviewed Medications / Prescriptions Medications or Prescriptions considered but not ordered:: Given Medication administrations:: Given Consultations Consultation(s) initiated? (list below): No Diagnosis OB Contractions Differential Diagnosis: other (Threatened missed incomplete spontaneous ) Most likely diagnosis given after review of the tests above:: Missed urinary tract infection Admission Indicated Admission indicated?: not indicated Explain why admission is indicated or not indicated:: Not indicated Admission Request Was there a request for admission?: No Admission Attestation Admission request attestation: Not indicated Disposition Plan Disposition Plan: Discharge Discharge Attestation Discharge Attestation: The patient and all family members were given an opportunity to ask questions and understood the discharge instructions. Discharge instructions specifically effects, indications for sooner follow up or return to the emergency department, and the expected course of current diagnosis. Patient condition: Stable Discharge Plan Plan Patient Disposition: HOME (Self Care) Patient condition on transfer: Stable Prescriptions/Referrals Prescriptions/Med Rec: New nitrofurantoin monohyd/m-cryst [Macrobid] 100 mg capsule 100 mg PO BID Qty: 20 0RF Rx Instructions: must administer with a meal/food No Action aspirin 81 mg tablet,chewable Patient Comments: chew and swallow 1 tablet by mouth once daily ferrous sulfate 325 mg (65 mg iron) tablet,delayed release (DR/EC) 325 mg PO BID Qty: 30 0RF ibuprofen 800 mg tablet 800 mg PO Q8H PRN (Reason: pain) Qty: 30 0RF cephalexin 500 mg capsule 500 mg PO TID Qty: 21 0RF Referrals: Karla Bello FNP [Primary Care Provider] - In 1 week Problem List Clinical Impression: , missed, Urinary tract infection Patient/Caregiver Discharge Instructions Education Materials: Urinary Tract Infections in Women, ED Missed Miscarriage Additional Instructions: It is very important to return on Tuesday here in the emergency room or follow-up with Dr. Gallagher for further evaluation and treatment of missed and possible D&C worsening symptoms or any emergent concern or worsening of vaginal bleeding with blood clots or general weakness return to the emergency room immediately or call 911 keep hydrated finish the course of antibiotic Print Language: Lithuanian Stand Alone Forms: Yola Award Info., Patient Portal Info Letter PA/FARM EQUIPMENT OPERATOR Supervising Physician NATALIE/FARM EQUIPMENT OPERATOR Supervising Physician: Dr. Fuentes
== END 2025-08-25 01:18 | disposition home or self-care (01) ==
PROVIDERS: Nurse Practitioner Family; Emergency Provider Emergency Medicine; PCP Registered Nurse
DX: O02.1 Missed abortion (principal); O23.41 Unspecified infection of urinary tract in pregnancy, first trimester; Z3A.01 Less than 8 weeks gestation of pregnancy
CPT/HCPCS: 36415; 76801; 80053; 81001; 84702; 85025; 86900; 86901; 99283

== ENCOUNTER 2025-09-16 10:39 | Outpatient (AMB) | payer MEDICAID, SELFPAY ==
--- NOTE | 2025-09-16 10:41 | AMB.GYNCLNOT ---
Allergies/Home Meds Allergies & Medications Allergies No Known Allergies Allergy (Verified 09/16/25 10:41) Intake Visit Data Collection New Patient or Established: Established Patient (seen at [facility] within 3 years) Reason for Visit:: RESULTS Seen by Clinical Staff ONLY (RN/MA): No Supervisor Pleating Required: No Do You Feel Safe at Home: Yes Authorities Contacted: N/A PCP or OBGYN visit in last 3 months: Yes Hx Now: No Are you currently on any form of Control: No Last menstrual period: 06/07/25 Pain Present Currently: No Pain Scale Used: Ramirez-Valenzuela/Numerical Pain scale:: 0 Smoking Status Smoking Status: Never smoker Immunizations Flu Vaccine in the Last 12 Months: No Flu Vaccine Exclusion Criteria: No Exclusion Criteria For Telemed visit only Telemed Video/Phone Visit: Yes Verbal consent obtained for Telemed visit?: Yes Verbal Consent witness name: CINDA GRANT HERIBERTO Telemed Video/Phone visit w/Clinical Staff: 11-20 min Sap Ppm Consultant history Sap Ppm Consultant History Menstrual regularity: irregular Flow: normal Monthly: Yes How many days does period last: 5 Age at menarche: 13 Currently sexually active: Yes [employer]: Past Medical History Past Medical History: No Hx Neurological Disorders, No Hx Cardiac Disorders, No Hx Cancer, No Hx Blood Disorders, No Hx Gastrointestinal Disorders, No Hx Renal Disease, No Hx Diabetes Mellitus Type 1 and No Hx Diabetes Mellitus Type 2 Questionnaires Covid-19 Vaccine Questionnaire Has patient been vacinated for Covid-19 Have you been vacinated for Covid-19: Yes PHQ-9 PHQ-2 Over the last 2 weeks, how often have you been bothered by any of the following problems? 1. Little interest or pleasure in doing things: not at all 2. Feeling down, depressed, or hopeless: not at all Total score: 0 PHQ-9 3. Trouble falling or staying asleep, or sleeping too much: Not at all 4. Feeling tired or having little energy: Not at all 5. Poor appetite or overeating: Not at all 6. Feeling bad about yourself - or that you are a failure or have let yourself or your family down: Not at all 7. Trouble concentrating on things, such as reading the newspaper or watching television: Not at all 8. Moving or speaking so slowly that other people could have noticed? - Or the opposite - being so fidgety or restless that you have been moving around a lot more than usual: not at all 9. Thoughts that you would be better off or of hurting yourself in some way: Not at all Total score: 0 If you checked off any problems, how difficult have these problems made it for you to do your work, take care of things at home, or get along with other people?: not difficult at all Source: Developed by Drs. Miguel Lazo, Ese Tate, Willie Ventura and colleagues, with an educational dinesh from [employer]. Depression screen completed yes Social History Living Situation History Marital Status: Life Partner Lives With: Family Housing: House Tobacco History Smoking Status: Never smoker Second Hand Smoke Exposure: No Alcohol History Alcohol Intake: Former Alcohol Intake Frequency: holidays/special occasions only Domestic Abuse History Do You Feel Safe at Home: Yes History of Present Illness HPI Narrative Darlin Payne presents for follow-up on spontaneous . The patient was previously seen on August 22, 2025, and was being prepared for suction dilation and curettage. However, she subsequently presented to the emergency room the following day with spontaneous passage of products of conception. One week later, on September 02, 2025, the patient had an ultrasound which showed findings consistent with completed spontaneous . The patient expressed interest in obtaining an IUD for contraception. She has an obstetric history of G1 T0 L0. Her recent spontaneous occurred in 2024. The patient was initially scheduled for suction dilation and curettage but had spontaneous passage of products of conception. Ultrasound on September 02, 2025 confirmed completed spontaneous miscarriage. ROS: Negative except as stated above, limited to C[employer] and pertinent complaints. - Pelvic ultrasound (09-02-2025): Uterus 9.8 cm, endometrium 0.6 cm, no intrauterine gestation or products of conception, right ovary 2.7 cm, left ovary 2.6 cm. Findings consistent with completed spontaneous . Exam General General Appearance: alert, in no apparent distress and healthy appearing Head Head exam: atraumatic Neck Neck exam: Present normal inspection and trachea midline Chest Chest inspection: Present normal inspection and symmetric chest wall rise External exam: Present normal external exam; Absent tenderness Neuro Neurological exam: Present oriented X3 Psych Psychiatric exam: Present normal affect and normal mood Office Procedures OBC Clinic LOC & Office Proc's Nursing/Assessment Patient Status: Established Patient OB Clinic Nursing Assessment: Medication Reconciliation and Update PMH in EMR OB Clinic Coordination of Care: Complex Care and Chronic Disease 1-5, Education Complex Pt/Fam, Consent,records obtained, informed consent, Lab and Imaging orders, Results/Orders obtained and Staff clarify orders Established Patient Charge Established Patient Point Assignment: 95 Telehealth If patient is seen using Teleconference methods, complete New/Est section, but DO NOT donovan points only donovan the correct Telemed visit type Telemed Phone/Video with patient at home & ,PA,[employer]: Yes Telemed Phone/Video with patient in Clinic w/,[employer],PA outside Clinic: Yes Assessment & Plan Diagnosis / Problem List (1) Complete or unspecified spontaneous without complication: Status: Acute Plan Completed Spontaneous : - Patient had spontaneous passage of products of conception after being prepared for suction dilation and curettage on 08-22-2025. - Follow-up ultrasound on September 02, 2025 confirmed completed spontaneous with uterus measuring 9.8 centimeters, endometrium 0.6 mm, no intrauterine gestation or retained products of conception. - Right ovary 2.7 cm, and left ovary 2.6 cm. - The miscarriage process is complete with no retained tissue requiring further intervention. Plan: - No further treatment required for completed spontaneous . Contraceptive Counseling: - Patient expressed interest in Mirena IUD placement for contraception. - She has no prior experience with this device. Plan: - Schedule appointment for IUD consultation and potential placement. - Discuss Mirena IUD options and considerations at appointment. - Proceed with IUD insertion if patient desires after counseling. - Staff will call patient to schedule appointment.
== END 2025-09-16 11:15 | disposition home or self-care (01) ==
LOC: HODSOBC 10:39
PROVIDERS: PCP Registered Nurse; Referring Provider Registered Nurse; Supervising Provider Obstetrics & Gynecology; Visit Provider Obstetrics & Gynecology
DX: O03.9 Complete or unspecified spontaneous abortion without complication (principal); Z30.09 Encounter for other general counseling and advice on contraception
CPT/HCPCS: 99212; Q3014; G0463